=== PATIENT | female | born 1990 | race Caucasian/White ===

== ENCOUNTER → 2017-11-10 16:19 | Outpatient (CLI) | payer MEDICAID, SELFPAY | PROVIDERS: Visit Provider Nurse Practitioner Adult Health | DX: R82.99 Other abnormal findings in urine (principal) | CPT/HCPCS: 87086; 87088; 87186 ==

== ENCOUNTER → 2017-11-24 17:00 | Outpatient (CLI) | payer MEDICAID, SELFPAY | PROVIDERS: Family Provider Student in an Organized Health Care Education/Training Program; PCP Student in an Organized Health Care Education/Training Program; Referring Provider Urology; Visit Provider Urology | DX: R82.99 Other abnormal findings in urine (principal) | CPT/HCPCS: 87086; 87088; 87186 ==

== ENCOUNTER → 2022-03-09 | Outpatient (CLI) | payer MEDICAID, SELFPAY | END | disposition home or self-care (01) | LOC: PSN 13:02 | PROVIDERS: PCP Student in an Organized Health Care Education/Training Program; Visit Provider Internal Medicine Cardiovascular Disease | DX: R00.2 Palpitations (principal); R42 Dizziness and giddiness; I10 Essential (primary) hypertension | CPT/HCPCS: 93225; 93226 ==

== ENCOUNTER → 2022-04-13 | Outpatient (CLI) | payer MEDICAID, SELFPAY ==
[2022-04-13 09:55] LABS: Hematocrit 38.7 % (37-47); Hemoglobin 12.8 g/dL (12.0-15.0); Mean Corp Hgb Conc 33.1 g/dL (32-36); Mean Corpuscular Hgb 30.1 pg (27.0-32.0); Mean Corpuscular Volume 91.1 fL (81-99); Mean Platelet Vol. 9.1 fl (6.2-12.0); Platelet Count 256 K/mm3 (150-450); RBC Distribution Width CV 11.6 % (11.6-14.6); RBC Distribution Width SD 38.3 fl (35.1-43.9); Red Blood Count 4.25 M/mm3 (4.2-5.4); White Blood Count 6.9 K/mm3 (4.4-11.0)
[2022-04-13 10:09] LABS: Anion Gap 3 (5-15); BUN 13 mg/dL (7-18); Chloride 105 mmol/L (98-107); Creatinine, Serum 0.72 mg/dL (0.55-1.02); EST Glomerular Filtration Rate 99 mL/min (>60); Est Glom Filt Rate - Afr Amer 120 mL/min (>60); Glucose 91 mg/dL (74-106); Potassium 3.5 mmol/L (3.5-5.1); Sodium Level 141 mmol/L (136-145)
[2022-04-13 10:17] LABS: Internal QC Validated? YES +Cl - CLEAR BKGD; Pregnancy, Serum, hCG Quali. NEGATIVE Negative
--- NOTE | 2022-04-13 19:15 | PCM.TILTTABL ---
Staff Staff: Reena Lincoln and Marsha Edouard Summary Protocol: 70 Degree Upright Tilt Pre Test Resting HR: 66 Pre Test Resting BP: 120/65 Minimum Test HR: 51 Maximum Test HR: 98 Minimum Test BP: 0/0 Maximum Test BP: 132/80 Reason for Test Termination: Syncope Physician Tilt Table Report Patient's Physicians Primary Care Physician: Brennan Horn [employer] Business Manager: Clyde Alcaraz Indications/Diagnosis: Dizziness Procedure Comments: The patient was brought to the tilt table laboratory and laid supine on the tilt table. The patient was awake and alert and warm and dry. The baseline heart rate was 66 bpm with a baseline blood pressure 120/75 mmHg. The cardiac rhythm appeared to be normal sinus rhythm. The patient was placed in the 70 degree upright tilt table position for approximately 16 minutes. The patient was initially awake and alert and warm and dry. The initial heart rate was 89 bpm with a blood pressure 130/95 mmHg. The patient was noted to have a decrease in heart rate to 51 bpm with a blood pressure reported as unobtainable. During this time the patient was noted to have sinus rhythm/sinus bradycardia with a subsequent prolonged pause approaching 14 seconds in duration with subsequent return to sinus bradycardia and subsequently sinus rhythm with sinus tachycardia with repetitive PACs and then subsequently findings compatible with sinus bradycardia normal sinus rhythm. During this time the patient complained upon dizziness, lightheadedness, weakness, hands feeling cool, tingling in the arms, and was subsequently reported as being unresponsive. The patient was returned to the supine position where she was noted to have a heart rate of 47 bpm and a blood pressure 111/67 mmHg. Her rhythm is as noted above. She was reported as pale and drowsy and warm. She was subsequently monitored and noted to have a concluding heart rate of 76 bpm with a concluding blood pressure 139/75 mmHg and was alert and oriented and warm and dry. The patient was eventually released from the tilt table laboratory. Summary: 70 degree upright tilt table study considered abnormal and reproducible for vasovagal/neurocardiogenic (combined cardioinhibitory and vasodilatory) syncope. This note was generated using a voice recognition system and there may be incorrect words, spelling or punctuation that were not noted when reviewing the office note prior to saving.
[2022-04-13 19:20] VITALS: BP 0/0; BP 120/65; BP 132/80
== END | disposition home or self-care (01) ==
PROVIDERS: Physician Assistant Medical; PCP Student in an Organized Health Care Education/Training Program; Referring Provider Internal Medicine Cardiovascular Disease; Visit Provider Internal Medicine Cardiovascular Disease
DX: R00.2 Palpitations (principal); R42 Dizziness and giddiness; R55 Syncope and collapse; I10 Essential (primary) hypertension
CPT/HCPCS: 36415; 80048; 84703; 85027; 93660; J7040; A4216

== ENCOUNTER → 2023-07-20 | Outpatient (CLI) | payer MEDICAID, SELFPAY ==
--- NOTE | 2023-07-20 14:54 | CT_ITS ---
EXAM: CT MAXILLOFACIAL SINUSES WITHOUT INTRAVENOUS CONTRAST CLINICAL INDICATION: SINUSITIS TECHNIQUE: Helically acquired images were obtained of the maxillofacial sinuses without intravenous contrast. This CT exam was performed using one or more of the following dose reduction techniques: automated exposure control, adjustment of the mA and/or kV according to patient size, and/or use of iterative reconstruction technique. COMPARISON: No relevant prior studies available. FINDINGS: MAXILLARY SINUSES: Clear. Ostiomeatal complexes are normally formed. SPHENOID SINUSES: Clear. FRONTAL SINUSES: Clear. ETHMOID AIR CELLS: Clear. NASAL CAVITY/SEPTUM: Nasal septum is deviated 5 mm to the left of midline. Small right shane bullosa. Ostiomeatal units appear intact. ORBITS: Normal. CT/Sinus/Facial Bone IMPRESSION: No evidence of sinusitis. Deviation of the nasal septum. Right shane bullosa. Electronically Signed: Arvind Langford MD at 16:41 EDT ,
== END | disposition home or self-care (01) ==
LOC: CT 14:54
PROVIDERS: PCP Student in an Organized Health Care Education/Training Program; Referring Provider Otolaryngology; Visit Provider Otolaryngology
DX: J32.8 Other chronic sinusitis (principal)
CPT/HCPCS: 70486

== ENCOUNTER 2023-07-21 10:57 | Day surgery (SDC) | payer MEDICAID, SELFPAY ==
--- NOTE | 2023-07-08 12:12 | HP.PCM_ITS ---
History and Physical Date of Admission: 07/21/23 HPI: The patient is a 33 year old female presenting for pre-operative visit. She is scheduled for laparoscopic bilateral salpingectomy, IUD removal, IUD insertion, for contraception management, sterilization requeest on 07/21/23. Procedure discussed along with risks, benefits and complications. Other alternatives discussed for management. Consent form signed? Yes. PAST MEDICAL HISTORY PAST MEDICAL HISTORY Diagnosis Date ? Acne vulgaris Dr. Bernstein [place], # [phone], ? ADHD (attention deficit hyperactivity disorder) [facility], Dr[facility] ? Depressive disorder, not elsewhere classified [facility], Dr. [facility] ? Fainting ? Generalized anxiety disorder ? Hypertension 2022 ? Learning disability ? Migraine ? Mood swings [facility], Dr. [facility]iat[facility] ? Pervasive developmental disorder ? Reactive attachment disorder ? Recurrent UTI ? Short-term memory loss ? Syncope PAST SURGICAL HISTORY PAST SURGICAL HISTORY Procedure Laterality Date ? CYSTOSCOPY ? ESOPHAGOGASTRODUODENOSCOPY TRANSORAL DIAGNOSTIC 03/21/2013 EGD ? ESOPHAGOGASTRODUODENOSCOPY TRANSORAL DIAGNOSTIC 02/12/15 EGD CURRENT MEDICATIONS Current Outpatient Medications Medication Sig Dispense Refill ? lisinopril (ZESTRIL) 5 mg tablet Take 1 tablet by mouth once daily. 30 tablet 5 ? Lactobacillus acidoph-pectin 75 million cell -100 mg cap Take 1 capsule by mouth once daily. 90 capsule 1 ? lamoTRIgine (LAMICTAL) 100 mg tablet Take 100 mg by mouth. ? omeprazole (PRILOSEC) 40 mg capsule Take 40 mg by mouth once daily. ? genaro root extract (DRAMAMINE GENARO ORAL) Take by mouth as needed. OTC with 30 mg of Genaro root extract ? methylphenidate (RITALIN) 5 mg tablet Take 5 mg by mouth two times a day. ? lidocaine (LIDODERM) 5 % Apply 1 Patch as directed as needed. ? cetirizine (ZYRTEC) 10 mg tablet Take 1 tablet by mouth once daily. 30 tablet 11 ? gabapentin (NEURONTIN) 100 mg capsule Take 200 mg by mouth daily at bedtime. ? multivitamin tablet Take 1 tablet by mouth once daily. ? busPIRone (BUSPAR) 15 mg tablet Take 1 tablet by mouth three times daily. (Patient taking differently: Take 30 mg by mouth two times a day. 30 in AM 15 in PM) 90 tablet 1 ? levonorgestrel (SIOBHAN) 14 mcg/24 hrs (3 yrs) 13.5 mg IUD IUD 1 Each by INTRAUTERINE route as directed. 1 Each 0 ? Vaporizers misc 1 Device as directed. 1 Each 0 ? clindamycin (CLEOCIN-T) 1 % gel Apply 1 application to affected area twice daily. 30 g 2 ? OXcarbazepine (TRILEPTAL) 150 mg tablet Take one and one half tablet in the morning and one tablet at night. (Patient taking differently: Take 300 mg by mouth daily at bedtime.) 75 tablet 0 ? guanFACINE (INTUNIV ER) 3 mg Tb24 Take 1 tablet by mouth once daily. 30 tablet 1 No current facility-administered medications for this visit. ALLERGIES: Cats, Dust, Grass Pollen, Mold, Benadryl Allergy Decongestant, and Maxalt [Rizatriptan Benzoate] PERSONAL HISTORY: SOCIAL HISTORY Social History Tobacco Use ? Smoking status: Never ? Smokeless tobacco: Never Vaping Use ? Vaping Use: Never used Substance Use Topics ? Alcohol use: No ? Drug use: No FAMILY HISTORY: FAMILY HISTORY FAMILY HISTORY Adopted: Yes Problem Relation Age of Onset ? Psychiatry Mother ? Diabetes Maternal Aunt ? Ovarian cancer Maternal Aunt family age 55 ? Diabetes Other great grandfather, child is adopted REVIEW OF SYMPTOMS: GENERAL: denies fevers or chills ENDOCRINOLOGY: has not been on steroids Cardiology : denies palpitations or chest pain Respiratory: denies SOB or cough Hematology: denies history of prolonged bleeding or easy bruising or VTE Allergy: Denies history of personal or family history of allergy to anesthesia PHYSICAL EXAMINATION: VITALS: Blood pressure 104/60, pulse 82, height 5' 1 (1.549 m), weight 114 lb (51.7 kg), last menstrual period 01/25/2018, SpO2 98%. GENERAL: The patient is well nourished, well hydrated in no acute distress. , The patient is oriented to time, place, and person. NECK: Supple. No lynphadenopathy, normal thyroid, no thyromegaly. LUNGS: Clear to auscultation bilaterally. no wheezes, rhonchi or rales HEART: Regular rate and rhythm, Normal heart sounds, and No murmurs or gallops GENITALIA: Normal external genitalia, Urethral meatus normal, Bladder nontender, normal vagina and normal vaginal tone, normal cervix, normal uterus, size and consistency, normal adnexa without masses or tenderness, and perineum WNL IMPRESSION: contraception management PLAN: The risks/benefits/alternatives and personal involved for the planned lapa roscpic bilateral salpingectomy, IUD removal and IUD insertion were reviewed with the patient. Her questions were answered to her satisfaction and she desires to proceed. Consent was signed. I reviewed with her postop instructions and expectations. I have reviewed and updated past medical and surgical history, medications and allergies Assessment & Plan Assessment/Plan (1) Sterilization: (2) Encounter for IUD removal and reinsertion: (3) Dysmenorrhea:
[2023-07-21] VITALS (12 sets, daily range): BP systolic 98–118; BP diastolic 57–76; PULSE 60–74; RESP 16; TEMP 36.3–37.1; O2SAT 91–100; BMI 21.2
[2023-07-21 11:24] LABS: Internal QC Validated? YES +Cl - CLEAR BKGD
[2023-07-21 11:25] LABS: Pregnancy, Urine Negative Negative; Record Kit Lot#,Urine Preg HCG0000718089
[2023-07-21] MEDS: Acetaminophen 500 MG Tablet 1000 MG PO (11:54)
[2023-07-21] MEDS: Ketorolac 30 MG/ML Syringe IV (11:54)
[2023-07-21] MEDS: Lactated Ringers 1,000 ML 15 ML IV (11:55)
[2023-07-21 12:07] LABS: Hematocrit 41.2 % (37-47); Hemoglobin 13.5 g/dL (12.0-15.0); Mean Corp Hgb Conc 32.8 g/dL (32-36); Mean Corpuscular Hgb 29.2 pg (27.0-32.0); Mean Platelet Vol. 8.9 fl (6.2-12.0); Platelet Count 319 K/mm3 (150-450); RBC Distribution Width CV 11.8 % (11.6-14.6); RBC Distribution Width SD 38.1 fl (35.1-43.9); Red Blood Count 4.63 M/mm3 (4.2-5.4); White Blood Count 8.4 K/mm3 (4.4-11.0)
[2023-07-21 12:16] LABS: Anion Gap 7 (5-15); BUN 15 mg/dL (7-18); Calcium,Total 9.2 mg/dL (8.5-10.1); Chloride 102 mmol/L (98-107); Creatinine, Serum 0.72 mg/dL (0.55-1.02); EST Glomerular Filtration Rate 100 mL/min (>60); Est Glom Filt Rate - Afr Amer 121 mL/min (>60); Estimated Creatinine Clearance 83.86 ml/min; Glucose 77 mg/dL (74-106); Potassium 3.7 mmol/L (3.5-5.1); Sodium Level 134 mmol/L (136-145)
--- NOTE | 2023-07-21 13:00 | FALS_PTH ---
PATIENT: DUY ALBA LOC: [facility] – [place] U#:[id number] AGE/SX: 33/F ROOM: RE07/21/[address]: Dr. Soledad Henderson MD : 1990 BED: DIS: 07/21/2023 SPEC #: [id number] RECD: 07/21/23 18:19 STATUS: LESLIE TOMAS #: [id number] TRAY: 07/21/23 13:[address]: Soledad Henderson DEPT: SURGICAL PATHOLOGY RECD BY: Samaria Ferrera ENTERED: 07/22/23 11:02 SP TYPE: FALL TUBES OTHR DR: Dr. Brennan Horn, Tissues: Fallopian tube Procedures: Surgery Specimen Level II HEADER OPERATION: Laparoscopic, salpingectomy, IUD removal, lietta IUD insertion PRE-OP DIAGNOSIS: Sterilization, encounter for IUD removal and reinsertion, dysmenorrhea TISSUE SUBMITTED: Bilateral fallopian tubes- left marked with suture MICROSCOPIC DIAGNOSIS Right fallopian tube, salpingectomy: Complete cross section of fallopian tube with no pathologic change. Left fallopian tube, salpingectomy: Complete cross section of fallopian tube with no pathologic change. AM: 07/26/2023 MICROSCOPIC DESCRIPTION Slides are reviewed. GROSS DESCRIPTION Received in fixative is one container labeled with the patient's name and designated bilateral fallopian tubes. The specimen consists of two fallopian tubes with an average length of 4.5 cm and has an average diameter of 0.7 cm. Both fallopian tubes have normal fimbriated ends. No mass lesions are identified. State Comptroller sections are submitted in two cassettes as follows: 1 - Right fallopian tube, 2 - Left fallopian tube. / AM: 07/22/23 TC:4 CPT: 38232 x2
--- NOTE | 2023-07-21 13:27 | DCINST_ITS ---
Discharge Instructions Diet Discharge Diet: No restrictions (Increase fluid intake for the next 48 hours.) Activity Discharge Activity: May Shower Return to work on:: 07/25/23 May resume sexual activity in: 1 week Additional Activity Instructions:: Ambulate often the next week after surgery. Nothing in the vagina for 5 days. Dressing / Incision Call your doctor if your incision/area has: Continuous Slow Oozing, Sudden Increased Bleeding, Increased Pain/ Swelling, Increased Redness and Foul Smelling Discharge Call your doctor if you observe: Fever of 101 or Higher Cleanse incision/area with: Soap & Water Additional Dressing/Incision Instructions:: Your incisions have skin glue, leave it on until it falls off. Follow Up Care Please Follow Up With: Soledad Henderson MD When: Call [phone] for follow-up appointment as needed. You do not have to have a postop appointment but call or send a [employer] message as needed. Test Results: Test results from this visit will be discussed in further detail at your follow- up appointment, if applicable. Discharge Plan Admission Primary Reason for Your Visit: Tubal sterilization and IUD removal and IUD improved Attending Provider: Soledad Henderson Primary Care Provider: Brennan Horn Instructions Print Language: Tuvaluan Discharge Orders/Prescriptions Prescriptions: New ibuprofen 600 mg tablet 600 mg PO Q6H PRN (Reason: Pain) 10 Days Qty: 30 1RF Continued lisinopril 5 mg tablet 5 mg PO DAILY Lactobacillus acidophilus 500 million cell tablet 500 mmu cells PO DAILY lidocaine 5 % adhesive patch,medicated 1 patch transdermal ONCE PRN (Reason: pain) Patient Comments: apply 1 patch topically as directed daily for 12 hours then REMOVE omeprazole 40 mg capsule,delayed release(DR/EC) 40 mg PO DAILY cetirizine 10 mg tablet 10 mg PO DAILY methylphenidate HCl 5 mg tablet 5 mg PO BID 30 Days Qty: 60 0RF buspirone 15 mg tablet 15 mg PO QPM oxcarbazepine 150 mg tablet 300 mg PO QHS Rx Instructions: TAKE 2 TABLETS BY MOUTH AT BEDTIME gabapentin 100 mg capsule 200 mg PO QPM Rx Instructions: TAKE 2 CAPSULES BY MOUTH AT BEDTIME lamotrigine 100 mg tablet 100 mg PO QPM Rx Instructions: TAKE 1 TABLET BY MOUTH AT BEDTIME buspirone 15 mg tablet 30 mg PO DAILY Rx Instructions: TAKE 2 TABLETS BY MOUTH EVERY MORNING AND TAKE 1 TABLET AT BEDTIME guanfacine 3 mg tablet extended release 24 hr See Rx Instructions .ROUTE .COMPLEX Qty: 28 3RF Dose Instruction: TAKE 1 TABLET BY MOUTH AT BEDTIME Rx Instructions: TAKE 1 TABLET BY MOUTH AT BEDTIME Referrals / Follow Up: Brennan Horn DO [Primary Care Provider] - Disposition Disposition (needs filled in before D/C Order can be placed): Home, Self Care
[2023-07-21] MEDS: Bupivacaine Mpf 0.5% 30 ML VIAL (13:45)
[2023-07-21] MEDS: Levonorgestrel IUD (Liletta) 1 EACH INTRA-UTER (13:54)
--- NOTE | 2023-07-21 14:02 | PCM.OPRPT ---
Report of Operation Date of Procedure: 07/21/23 Pre-Operative Diagnosis: sterilization request. Iud Removal, IUD insertion Post-Operative Diagnosis: same Surgery/Procedure Performed:: Laparoscopic bilateral salpingectomy and IUD removal and Mirena IUD insertion Description of Surgical Findings:: Normal cervix, vagina, uterus, tubes and ovaries Surgeon: Soledad Henderson furniture associate: Farzaneh Redding M3 Type of Anesthesia: General Anesthesiologist: Ananya Lowry Special Medications: none Specimen's removed: bilateral fallopian tubes Drains: none Estimated Blood Loss (mL): 5 Fluids Replaced: 1300 Description of Procedure: The patient was taken to the operating room where she was prepped and draped in the dorsolithotomy position. A weighted speculum was placed in the vagina and the anterior lip of the cervix was grasped with a tenaculum. The IUD strings were not visible. I was able to use a grasper and resected to the cervix and grasped the IUD strings and bring the IUD out intact. Uterus sounded to 7.5 cmThe Wendy uterine manipulator was placed and the remainder of the instruments were removed from the vagina. Attention was turned to the abdomen. All port sites were infiltrated with 0.5% Marcaine before skin incisions were made. A 5 mm intraumbilical incision was made. The anterior abdominal wall was tented up with 2 towel clamps while a 5 mm blade less trocar and sleeve were directly inserted. Intraperitoneal placement was confirmed with the laparoscope. The pneumoperitoneum was created and the underlying abdominal contents were intact. The patient was placed in Trendelenburg. Right and left lower quadrant ports were placed under direct visualization lateral to the inferior epigastric vessels. The bowel was swept away and the above findings were noted. The Enseal device was used to clamp seal and transect the antimesenteric portions of the right tube to the cornual insertion of the uterus. The tube was amputated from the uterus and the pedicles were all confirmed to be hemostatic. The same procedure was performed on the contralateral side. The specimens were brought out through a 5 mm port. The pedicles were again examined and found to be hemostatic. The lateral ports were removed under direct visualization and no active bleeding was noted. The pneumoperitoneum was released. The skin incisions were closed with Monocryl suture in a subcuticular fashion and skin glue. I remove the Wendy from the vagina. The Mirena IUD was inserted in the usual sterile fashion without difficulty and the strings cut to 2 cm long. The vaginal instruments were removed and the vaginal sweep was completed by me. The procedure was performed by me with assistance . All sponge and needle counts were correct and the patient was taken to the recovery room in stable condition. Grafts/Implants Used: Mirena IUD Procedure Start Time: 13:31 Procedure Stop Time: 14:00 Complications none Admit VTE Documentation VTE Present on Admission: No VTE Mechan Device Prophylaxis: SCD's VTE Pharm Prophylaxis ordered?: No Reason prophylaxis not ordered:: Procedure Not Indicated
[2023-07-21] MEDS: oxyCODONE 5 MG Tablet PO (16:20)
== END 2023-07-21 17:24 | disposition home or self-care (01) ==
LOC: SDC 10:58 → AC 10:59
PROVIDERS: Anesthesiology; PCP Student in an Organized Health Care Education/Training Program; Referring Provider Obstetrics & Gynecology; Visit Provider Obstetrics & Gynecology
PROC: (CPT 58661; principal; 2023-07-21 12:45)
DX: Z30.2 Encounter for sterilization (principal); F41.1 Generalized anxiety disorder; I10 Essential (primary) hypertension; F90.9 Attention-deficit hyperactivity disorder, unspecified type; Z30.433 Encounter for removal and reinsertion of intrauterine contraceptive device; N94.6 Dysmenorrhea, unspecified; Z79.899 Other long term (current) drug therapy; K21.9 Gastro-esophageal reflux disease without esophagitis
CPT/HCPCS: 58661; 58300; 58301; 00840; 80048; 81025; 85027; 88302; J7120; C1760; J2405